=== PATIENT | male | born 1980 | race Caucasian/White ===

== ENCOUNTER 2019-09-17 08:36 | Day surgery (SDC) | payer OTHER ==
--- NOTE | 2019-09-17 08:07 | HP ---
DATE OF SURGERY: 09/17/2019 HISTORY OF PRESENT ILLNESS: The patient is a 39 year-old with upper abdominal and some lower chest area pain over a couple of weeks, having problems in the lower esophagus food getting stuck in that area. He is in need for upper endoscopy possible biopsy possible dilatation for further evaluation to evaluate for esophagitis, gastritis, esophageal stricture, peptic ulcer disease, other etiologies or symptoms. PAST MEDICAL HISTORY: Kidney stones. History of deep venous thrombosis in the past in 2016 and that is why he is on Xarelto. PAST SURGICAL HISTORY: Cystoscopy in the past. MEDICATIONS: Xarelto, omeprazole. ALLERGIES: NKDA. FAMILY HISTORY: Negative in regards to this problem. Negative for esophageal cancer. SOCIAL HISTORY: No smoking. Occasional alcohol use denies abuse. REVIEW OF SYSTEMS: Fourteen systems reviewed per admission assessment. He has had upper abdominal pain radiating up to the chest but no palpitations. No new shortness of breath. Otherwise pertinent for as noted above. Other systems negative or noncontributory as above and per preadmission assessment. PHYSICAL EXAMINATION: GENERAL: No acute distress. HEENT: Sclerae nonicteric. Moist mucous membranes. NECK: No JVD. CHEST: Equal excursion, nonlabored breathing. CVS: Regular rate and rhythm. ABDOMEN: Soft. No peritoneal signs. EXTREMITIES: No significant edema. NEURO: Alert, oriented, moving extremities symmetrically. No gross motor deficits noted. PSYCH: Appropriate mood and affect. IMPRESSION: Epigastric pain and dysphagia unclear etiology could be esophagitis, esophageal stricture, gastritis, peptic ulcer disease or other etiology. I feel the patient may benefit from EGD possible biopsy, possible dilatation depending on operative findings. Risks and benefits explained in detail including but not limited to bleeding or infection, risk of bowel injury or perforation possibly requiring open procedure, risk of missed or nondiagnosis or incomplete exam possibly requiring barium swallow, other studies or procedures. He understands if he does have a narrowed area if we dilate it out this possibly may need to be repeated again down the road or if it looks narrowed and we use balloon to dilate and fails to improve swallowing may need further work up and/or testing, more risky dilators or need for upper GI study or other studies or work up. He also understands if his upper endoscopy is fairly unremarkable may need to consider gallbladder work up but at this time given his epigastric pain and dysphagia will proceed with EGD with possible biopsy possible dilatation as an outpatient. The patient agrees with the above as well as risk of sedation or aspiration but not limited to. Risk of deep venous thrombosis. Will EGD with possible biopsy possible dilatation as an outpatient.
[2019-09-17] MEDS ORDERED: Lactated Ringers 1,000 ML IV SCH (09:00)
[2019-09-17] MEDS ORDERED: Lactated Ringers 1,000 ML IV ONE (09:20)
[2019-09-17] MEDS ORDERED: Xylocaine-Mpf 2% 5 Ml Vial ONE (10:25)
[2019-09-17] MEDS ORDERED: Ketamine HCl 50 MG/ML ONE (10:25)
[2019-09-17] MEDS ORDERED: DIPRIVAN 200 MG/20 ML IV ONE (10:25)
[2019-09-17 12:40] VITALS: BP 120/59; PULSE 60; O2SAT 98
--- NOTE | 2019-09-18 09:44 | OP ---
SURGERY DATE/TIME: 09/17/2019 1019 PREOPERATIVE DIAGNOSIS: Dysphagia. POSTOPERATIVE DIAGNOSES: 1) Minimal gastritis. 2) Short segment distal gastroesophagitis with symptomatic distal esophageal narrowing and spasm requiring dilatation. PROCEDURES: 1) EGD with cold biopsy of the antrum for Helicobacter pylori. 2) Cold biopsy distal esophagus to evaluate for short segment distal gastroesophagitis. 3) Esophageal dilatation distal esophagus balloon dilator size 20. SURGEON: Dr. Leonard Pope. ANESTHESIA: MAC. ESTIMATED BLOOD LOSS: Minimal. INDICATIONS: As noted above. Risks and benefits explained in detail and not limited to and consent obtained. DESCRIPTION OF PROCEDURE AND FINDINGS: The patient is taken to the operating room. MAC anesthesia introduced. After official time out and no disagreement with planned procedure, the video gastroscope was easily passed down the oropharynx down through the proximal esophagus through the narrowed area where he was having symptoms in the distal esophagus down to the patent pylorus to the junction of the second and third portion of the duodenum. The duodenum and duodenal bulb were grossly unremarkable. Scope pulled back in the stomach. He had some minimal to mild erythema. It was felt he had some minimal early gastritis or mild gastritis. Cold biopsy taken to evaluate for Helicobacter pylori. Good hemostasis noted. There were no signs of any obvious polyps, masses, ulcers or other mucosal lesions. On retroflex the gastroesophageal junction snug against the scope. No signs of any significant hiatal hernia on retroflex of the scope. The scope was pulled up in gastroesophageal junction about 40 cm. There was narrowed area where he was having symptoms of things getting stuck. It was felt this warranted dilatation of this distal esophageal narrowing spasm. In short segment of a little bit of mild chronic inflammation a cold biopsy taken to evaluate for path. Good hemostasis noted. Otherwise the remainder of the esophagus grossly unremarkable. No signs of any obvious other masses or any mucosal lesions. It was felt the patient would benefit from dilatation. The scope passed down in the stomach. The 20 balloon dilator catheter carefully inserted under direct vision in the stomach. It was then pulled back up to the distal esophageal narrowed area where it was gradually inflated first stage 45 seconds size 18, size 19 for 45 seconds, size 20 balloon inflated and left in place for 2 minutes. Balloon catheter was then decompressed and withdrawn. The scope much more easily passed through this area. There were no signs of any full thickness issues or injury secondary to dilatation. The remainder of the esophagus grossly unremarkable. The scope was withdrawn. The patient tolerated the procedure well. There were no immediate complications. There was no family available to discuss the findings with out in the waiting area.
== END 2019-09-17 11:50 | disposition home or self-care (01) ==
LOC: SDC 08:36
PROVIDERS: ATTEND Surgery
DX: K29.70 Gastritis, unspecified, without bleeding (principal); K22.2 Esophageal obstruction; K20.9 Esophagitis, unspecified; K22.4 Dyskinesia of esophagus
CPT/HCPCS: 87081; 88305; C1726; J2704

== ENCOUNTER 2019-11-24 07:51 | Emergency (ER) | payer OTHER ==
--- NOTE | 2019-11-24 08:10 | ERPHSYRPT ---
- History of Present Illness Time Seen by Provider: 11/24/19 08:10 Source: patient Exam Limitations: no limitations Patient Subjective Stated Complaint: back pain Triage Nursing Assessment: pt to ED c/o lower back pain since . pt denies injury or trauma to area. pt states 10/10 pain center above tailbone that radiates to upper thighs bilaterally. reports occasional hx of upper back and neck pain but has never had issues in lower back. 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 some constipation onset with pain. ambulatory with steady gate per self. Physician History: pt to ED c/o lower back pain since . pt denies injury or trauma to area. pt states 10/10 pain center above tailbone that radiates to upper thighs bilaterally. reports occasional hx of upper back and neck pain but has never had issues in lower back. 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 some constipation onset with pain. ambulatory with steady gate per self. Timing/Duration: yesterday Allergies/Adverse Reactions: No Known Drug Allergies Allergy (Verified 11/24/19 08:05) Home Medications: Omeprazole 20 mg PO DAILY 09/11/19 [History] Hx Tetanus, Diphtheria Vaccination/Date Given: Yes Hx Influenza Vaccination/Date Given: Yes Hx Pneumococcal Vaccination/Date Given: No Immunizations Up to Date: Yes Travel Risk - International Travel Have you traveled outside of the country in past 3 weeks: No - Coronavirus Screening Are you exhibiting any of the following symptoms?: No Close contact with a COVID-19 positive Pt in past 14-21 Days: No - Review of Systems Constitutional: No Fever, No Chills Eyes: No Symptoms Ears, Nose, & Throat: No Symptoms Respiratory: No Cough, No Dyspnea Cardiac: No Chest Pain, No Edema, No Syncope Abdominal/Gastrointestinal: No Abdominal Pain, No Nausea, No Vomiting, No Diarrhea Genitourinary Symptoms: No Dysuria Musculoskeletal: Back Pain, No Neck Pain Skin: No Rash Neurological: No Dizziness, No Focal Weakness, No Sensory Changes Psychological: No Symptoms Endocrine: No Symptoms All Other Systems: Reviewed and Negative - Past Medical History Pertinent Past Medical History: Yes Neurological History: No Pertinent History ENT History: No Pertinent History Cardiac History: Deep Vein Thrombosis Respiratory History: No Pertinent History Endocrine Medical History: No Pertinent History Musculoskeletal History: No Pertinent History GI Medical History: No Pertinent History History: Other Psycho-Social History: No Pertinent History Male Reproductive Disorders: No Pertinent History Other Medical History: possible kidney stones, DVT 2016 - Past Surgical History Past Surgical History: No Neuro Surgical History: No Pertinent History Cardiac: No Pertinent History Respiratory: No Pertinent History Gastrointestinal: No Pertinent History Genitourinary: No Pertinent History Musculoskeletal: No Pertinent History Male Surgical History: No Pertinent History Other Surgical History: uroscopy - Social History Smoking Status: Never smoker Exposure to second hand smoke: No Drug Use: none Patient Lives Alone: No - Nursing Vital Signs Nursing Vital Signs: Initial Vital Signs Temperature 97.8 F 11/24/19 07:56 Pulse Rate 75 11/24/19 07:56 Respiratory Rate 18 11/24/19 07:56 Blood Pressure 125/90 11/24/19 07:56 O2 Sat by Pulse Oximetry 99 11/24/19 07:56 Pain Scale Pain Intensity [Posterior 10 Medial Back] Pain Intensity 10 - Physical Exam General Appearance: no apparent distress, alert Eye Exam: PERRL/EOMI, eyes nml inspection Neck Exam: normal inspection, non-tender, supple, full range of motion, No meningismus, No midline tenderness Respiratory Exam: normal breath sounds, lungs clear, No respiratory distress Cardiovascular Exam: regular rate/rhythm, normal heart sounds Gastrointestinal Exam: soft, No tenderness, No mass Extremity Exam: normal inspection, normal range of motion, No calf tenderness, No pedal edema Neurologic Exam: alert, oriented x 3, 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, 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, normal mood/affect, nml station & gait, sensation nml, No motor deficits Skin Exam: normal color, warm, dry, No rash SpO2: 99 - Course Nursing assessment & vital signs reviewed: Yes Ordered Tests: Medication Summary Discontinued Medications Generic Name Dose Route Start Last Admin Trade Name Freq PRN Reason Stop Dose Admin Ketorolac Tromethamine 60 mg 11/24/19 08:15 11/24/19 08:22 Toradol 30 Mg Injection IM 11/24/19 08:16 60 mg STAT ONE Administration Ketorolac Tromethamine Confirm 11/24/19 08:18 Toradol 30 Mg Injection Administered 11/24/19 08:19 Dose 60 mg .ROUTE .STK-MED ONE Orphenadrine Citrate 60 mg 11/24/19 08:15 11/24/19 08:22 Norflex 60 Mg/2 Ml IM 11/24/19 08:16 60 mg STAT ONE Administration Orphenadrine Citrate Confirm 11/24/19 08:19 Norflex 60 Mg/2 Ml Administered 11/24/19 08:20 Dose 60 mg .ROUTE .STK-MED ONE - Progress Progress: improved, pain not gone completely Progress Note: 11/24/19 08:25 I reviewed patient previous labs as well as x-rays that included a d-dimer protein S protein C and other coagulation factor assay which are all negative. Patient is still taking Xarelto which I advised her to hold for 2 days while he is taking naproxen for his back pain. He is strongly advised to go and follow- up with Dr. Amin and discuss all his labs and about continuation of Xarelto. My recommendation for him is to stop Xarelto. 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 He is advised some back exercise which he has to continue doing it. Counseled pt/family regarding: lab results, diagnosis, need for follow-up, rad results - Departure Departure Disposition: Home Clinical Impression: Lumbalgia Qualifiers: Chronicity: acute Back pain laterality: bilateral Sciatica laterality: sciatica laterality unspecified Condition: Stable Critical Care Time: No Referrals: JIM AMIN MD [Primary Care Provider] - Instructions: Low Back Pain (DC), Back Stretches Standing or Seated, Sciatica Exercises Additional Instructions: Discharge/Care Plan FALGUNI CROWELL was seen on 11/24/19 in the Emergency Room. The patient was counseled regarding Diagnosis,Lab results, Imaging studies, need for follow up and when to return to the Emergency Room. Prescriptions given: Discharge Note I have spoken with the patient and/or caregivers. I have explained the patient's condition, diagnosis and treatment plan based on the information available to me at this time. I have answered the patient's and/or caregiver's questions and addressed any concerns. The patient and/or caregivers have as good understanding of the patient's diagnosis, condition and treatment plan as can be expected at this point. The vital signs have been stable. The patient's condition is stable and appropriate for discharge from the emergency department. The patient will pursue further outpatient evaluation with the primary care physician or other designated or consulting physician as outlined in the discharge instructions. The patient and/or caregivers are agreeable to this plan of care and follow-up instructions have been explained in detail. The patient and/or caregivers have received these instruction. The patient/and or caregivers are aware that any significant change in condition or worsening of symptoms should prompt an immediate return to this or the closest emergency department or call 911. I advised patient strongly to follow-up with Dr. Amin for further reviewing his laboratory data and regarding continuation of his Xarelto. Prescriptions: Naproxen 375 mg [Naprosyn 375 mg] 375 mg PO Q8H #20 tablet
[2019-11-24] MEDS ORDERED: TORAdol 30 mg Injection IM ONE (08:15)
[2019-11-24] MEDS ORDERED: Norflex 60 MG/2 ML IM ONE (08:15)
[2019-11-24] MEDS ORDERED: TORAdol 30 mg Injection ONE (08:18)
[2019-11-24] MEDS ORDERED: Norflex 60 MG/2 ML ONE (08:19)
[2019-11-24 08:53] VITALS: BP 132/87; PULSE 70
[2019-11-24 08:55] VITALS: O2SAT 99
== END 2019-11-24 08:51 | disposition home or self-care (01) ==
LOC: ED 07:51
DX: M54.40 Lumbago with sciatica, unspecified side (principal); Z79.01 Long term (current) use of anticoagulants
CPT/HCPCS: 96372; 99284; J1885; J2360

== ENCOUNTER 2020-03-05 16:12 | Emergency (ER) | payer OTHER ==
--- NOTE | 2020-03-05 16:21 | ERPHSYRPT ---
- History of Present Illness Time Seen by Provider: 03/05/20 16:21 Source: patient Exam Limitations: no limitations Physician History: This is a 39-year-old white male who has a history of right lower extremity DVT in the past. He was taking Xarelto until approximately 3 months ago. 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 Approximately 5 days ago he noted some tightness in the right calf that was worsening. He started old Xarelto. After work yesterday he went to see [facility] emergency department where he underwent ultrasound of his right lower extremity. This morning he found the results to be positive for DVT. He was given 20 mg of Xarelto today and then a prescription for 30 more days. Patient denies chest pain and denies shortness of breath. He came to the emergency department because he felt he may be incompletely treated. I did call Dr. Amin, the patient's primary care provider. I reviewed with Dr. Amin the history above. He recommends no additional anticoagulation therapy. He is also recommending that the patient follow-up in his office tomorrow to make arrangements for follow-up appointment. Patient specifically states he does not need anything for pain control. Timing/Duration: day(s) (5) Severity: mild Modifying Factors: Improves With: movement Associated Symptoms: denies symptoms Allergies/Adverse Reactions: No Known Drug Allergies Allergy (Verified 03/05/20 16:38) Home Medications: Omeprazole 20 mg PO DAILY 09/11/19 [History] Rivaroxaban 10 mg Tablet [Xarelto 10 mg Tablet] 20 mg PO DAILY 03/05/20 [History] Hx Tetanus, Diphtheria Vaccination/Date Given: Yes Hx Influenza Vaccination/Date Given: Yes Hx Pneumococcal Vaccination/Date Given: No Travel Risk - International Travel Have you traveled outside of the country in past 3 weeks: No - Coronavirus Screening Are you exhibiting any of the following symptoms?: No Close contact with a COVID-19 positive Pt in past 14-21 Days: No - Review of Systems Constitutional: No Symptoms Eyes: No Symptoms Ears, Nose, & Throat: No Symptoms Respiratory: No Symptoms Cardiac: No Symptoms Abdominal/Gastrointestinal: No Symptoms Genitourinary Symptoms: No Symptoms Musculoskeletal: Other (Tightness right calf) Skin: No Symptoms Neurological: No Symptoms Psychological: No Symptoms Endocrine: No Symptoms Hematologic/Lymphatic: No Symptoms Immunological/Allergic: No Symptoms All Other Systems: Reviewed and Negative - Past Medical History Pertinent Past Medical History: Yes Neurological History: No Pertinent History ENT History: No Pertinent History Cardiac History: Deep Vein Thrombosis Respiratory History: No Pertinent History Endocrine Medical History: No Pertinent History Musculoskeletal History: No Pertinent History GI Medical History: No Pertinent History History: Other Psycho-Social History: No Pertinent History Male Reproductive Disorders: No Pertinent History Other Medical History: possible kidney stones, DVT 2016 - Past Surgical History Past Surgical History: No Neuro Surgical History: No Pertinent History Cardiac: No Pertinent History Respiratory: No Pertinent History Gastrointestinal: No Pertinent History Genitourinary: No Pertinent History Musculoskeletal: No Pertinent History Male Surgical History: No Pertinent History Other Surgical History: uroscopy - Social History Smoking Status: Never smoker Exposure to second hand smoke: No Drug Use: none Patient Lives Alone: No - Nursing Vital Signs Nursing Vital Signs: Initial Vital Signs Pulse Rate 78 03/05/20 16:32 Respiratory Rate 18 03/05/20 16:32 Blood Pressure 148/93 03/05/20 16:32 O2 Sat by Pulse Oximetry 97 03/05/20 16:32 Pain Scale Pain Intensity 4 - Physical Exam General Appearance: no apparent distress, alert, anxiety Eye Exam: PERRL/EOMI, eyes nml inspection Ears, Nose, Throat Exam: normal ENT inspection, moist mucous membranes Neck Exam: normal inspection, non-tender, supple, full range of motion Respiratory Exam: lungs clear, airway intact, No chest tenderness, No respirato ry distress Cardiovascular Exam: regular rate/rhythm, normal heart sounds, normal peripheral pulses Gastrointestinal/Abdomen Exam: soft, normal bowel sounds, No tenderness Rectal Exam: not done Back Exam: normal inspection, normal range of motion, No CVA tenderness, No vertebral tenderness Extremity Exam: normal range of motion, pelvis stable, swelling (Mild right posterior calf swelling compared to the left side), tenderness (Mild right calf) Neurologic Exam: alert, oriented x 3, 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 Dr. Amin does not feel the patient needs any further anticoagulation therapy and can be sent home with his current treatment plan. He is to follow-up with Dr. Amin's office tomorrow to make arranges for follow- up appointment. The patient declines pain control medication. He will use Tylenol at home if needed. Patient is to continue to the Xarelto medication as prescribed. Counseled pt/family regarding: diagnosis, need for follow-up - Departure Departure Disposition: Home Clinical Impression: DVT (deep venous thrombosis) Condition: Stable Critical Care Time: No Referrals: JIM AMIN MD [Primary Care Provider] - Additional Instructions: Continue your medication as prescribed. Follow-up with Dr. Amin's office tomorrow to make arrangements for follow-up appointment.
[2020-03-05 17:16] VITALS: O2SAT 98
[2020-03-05 18:02] VITALS: BP 132/82; PULSE 72
== END 2020-03-05 18:06 | disposition home or self-care (01) ==
LOC: ED 16:12
DX: I82.401 Acute embolism and thrombosis of unspecified deep veins of right lower extremity (principal); Z79.01 Long term (current) use of anticoagulants
CPT/HCPCS: 99283

== ENCOUNTER 2020-03-08 19:25 | Emergency (ER) | payer OTHER ==
[2020-03-08] MEDS ORDERED: Sodium Chloride 0.9% 1000 ML 1,000 ML IV STA (19:33)
[2020-03-08] MEDS ORDERED: MORPHINE SULFATE 4 MG INJ IV ONE (19:33)
[2020-03-08] MEDS ORDERED: Pepcid 20 MG VIAL IV ONE ×2 (19:33→19:57)
[2020-03-08 19:57] LABS: Absolute Neutrophil Ct (ANC) 3.25 (1.4-6.9); BASOPHIL % 0.4 % (0.0-0.4); Basophil (Absolute #) 0.03 (0-0.4); Eosinophil % 4.9 % (0.00-5.0); Eosinophil (Absolute #) 0.37 (0-0.5); Hematocrit 44.1 % (42-50); Hemoglobin 15.4 gm/dl (12.5-18.0); Lymphocyte (Absolute #) 3.37 (1.0-4.6); Lymphocytes % 44.3 % (24.0-44.0); Mean Cell Volume 92.1 fl (78-100); Mean Corpuscular Hemoglobin 32.2 pg (26-32); Mean Corpuscular Hgb Concent. 34.9 g/dl (32-36); Mean Platelet Volume 10.1 fl (7.5-11.0); Monocyte (Absolute #) 0.58 (0.0-1.3); Monocytes % 7.6 % (0.0-12.0); Neutrophil % 42.8 % (36.0-66.0); Platelet Count 218 K/mm3 (150-450); Red Blood Count 4.79 M/mm3 (4.1-5.6); Red Cell Distribution Width 12.6 % (11.5-14.0); White Blood Count 7.6 K/mm3 (4.0-10.5)
[2020-03-08] MEDS ORDERED: MORPHINE SULFATE 4 MG INJ ONE (19:57)
[2020-03-08] MEDS ORDERED: Sodium Chloride 0.9% 1000 ML 1,000 ML ONE (19:57)
[2020-03-08 20:03] LABS: ALBUMIN 4.8 g/dL (3.5-5.0); ALKALINE PHOSPHATASE 60 U/L (38-126); ANION GAP 13.4 MEQ/L (5-15); BLOOD UREA NITROGEN 25 mg/dL (9-20); CHLORIDE 102 mmol/L (98-107); Calcium 10.3 mg/dL (8.4-10.2); Carbon Dioxide 26 mmol/L (22-30); Creatinine 1 1.16 mg/dL (0.66-1.25); EST GLOMERULAR FILTRATION RATE > 60.0 ML/MIN; Glucose 147 mg/dL (74-106); Potassium 4.1 mmol/L (3.5-5.1); SGOT/AST 35 U/L (17-59); SGPT/ALT 46 U/L (0-50); SODIUM 138 mmol/L (137-145); Total Protein 8.4 g/dL (6.3-8.2)
--- NOTE | 2020-03-08 20:03 | ERPHSYRPT ---
- History of Present Illness Time Seen by Provider: 03/08/20 19:59 Historian: patient Exam Limitations: no limitations Patient Subjective Stated Complaint: Patient states " I was diagnosed with blood clot in right lower leg behind right knee on Tuesday and I just started feeling really bad. I'm unsure about what time, I just started feeling clammy and having pressure in my chest and having shortness of breath and told my I needed to go to hospital". Triage Nursing Assessment: Patient arrived into ER being pushed in W/C. Patient A/O times 4. Patient able to stand and pivot into bed independently with stand by assist. Patient able to answer questions without difficulty. Lungs clear bilateral A/P throughout. Patient states he is having SOB. 02 sat 99% on room air upon arrival to ER. Patient breathing without difficulty with no S/S of respiratory distress. Cap refill < 3 seconds. No dependent edema noted. Patient right lower extremity without edema but does have some redness behind right knee and tenderness upon touch. Apical heart rate regular and strong. + BS times 4 quads. ABD soft round non-distended. Patient denies pain or discomfort upon palpitation. Patient denies N/V. Patient denies H/A. Patient denies dizziness. Patient denies any pain in back or radiating pain into left arm or jaw. + radial pulses bilateral. Physician History: Patient states " I was diagnosed with blood clot in right lower leg behind right knee on Tuesday and I just started feeling really bad. I'm unsure about what time, I just started feeling clammy and having pressure in my chest and having shortness of breath and told my I needed to go to hospital". Recently diagnosed with deep vein thrombosis behind his right knee in popliteal artery. He was started on Xarelto 3 days ago. He was also started on Pepcid for acid reflux. He started having epigastric chest pain and he feels heaviness on his left side of the chest. He denies any shortness of breath fever chills nausea vomiting or diarrhea. Timing/Duration: today Quality: fullness Location: substernal Chest Pain Radiation: no radiation Severity of Pain-Max: moderate Severity of Pain-Current: moderate Modifying Factors: Improves With: nothing Associated Symptoms: heartburn, shortness of breath, hurts to breathe, No diaphoresis, No chills, No fever, No fatigue Prior Chest Pain/Cardiac Workup: no prior chest pain Nitro Today/Relief: no nitro taken today Aspirin Treatment Today: no aspirin today Allergies/Adverse Reactions: No Known Drug Allergies Allergy (Verified 03/08/20 19:32) Home Medications: Omeprazole 20 mg PO DAILY 09/11/19 [History] Rivaroxaban 10 mg Tablet [Xarelto 10 mg Tablet] 30 mg PO DAILY 03/05/20 [History] Hx Tetanus, Diphtheria Vaccination/Date Given: No Hx Influenza Vaccination/Date Given: No Hx Pneumococcal Vaccination/Date Given: No Immunizations Up to Date: Yes Travel Risk - International Travel Have you traveled outside of the country in past 3 weeks: No - Coronavirus Screening Symptoms: Shortness of Breath Close contact with a COVID-19 positive Pt in past 14-21 Days: No - Review of Systems Constitutional: No Fever, No Chills Eyes: No Symptoms Ears, Nose, & Throat: No Symptoms Respiratory: No Cough, No Dyspnea Cardiac: Chest Pain, No Edema, No Palpitations, No Syncope Abdominal/Gastrointestinal: No Abdominal Pain, No Nausea, No Vomiting, No Diarrhea Genitourinary Symptoms: No Dysuria Musculoskeletal: No Back Pain, No Neck Pain Skin: No Rash Neurological: No Dizziness, No Focal Weakness, No Sensory Changes Psychological: No Symptoms Endocrine: No Symptoms All Other Systems: Reviewed and Negative - Past Medical History Pertinent Past Medical History: Yes Neurological History: No Pertinent History ENT History: No Pertinent History Cardiac History: Deep Vein Thrombosis Respiratory History: No Pertinent History Endocrine Medical History: No Pertinent History Musculoskeletal History: No Pertinent History GI Medical History: No Pertinent History History: Other Psycho-Social History: No Pertinent History Male Reproductive Disorders: No Pertinent History Other Medical History: possible kidney stones, DVT 2016. Blood Clot 03/04/20 - Past Surgical History Past Surgical History: No Neuro Surgical History: No Pertinent History Cardiac: No Pertinent History Respiratory: No Pertinent History Gastrointestinal: No Pertinent History Genitourinary: No Pertinent History Musculoskeletal: No Pertinent History Male Surgical History: No Pertinent History Other Surgical History: uroscopy - Social History Smoking Status: Never smoker Exposure to second hand smoke: Yes Drug Use: none Patient Lives Alone: No - Nursing Vital Signs Nursing Vital Signs: Initial Vital Signs Temperature 98.1 F 03/08/20 19:29 Pulse Rate 97 H 03/08/20 19:29 Respiratory Rate 22 03/08/20 19:29 Blood Pressure 147/100 03/08/20 19:29 O2 Sat by Pulse Oximetry 99 03/08/20 19:29 Pain Scale Pain Intensity 3 - Physical Exam General Appearance: no apparent distress, alert Eye Exam: PERRL/EOMI, eyes nml inspection Ears, Nose, Throat Exam: normal ENT inspection, moist mucous membranes Neck Exam: normal inspection, non-tender, supple, full range of motion Respiratory Exam: normal breath sounds, lungs clear, No respiratory distress Cardiovascular Exam: regular rate/rhythm, normal heart sounds Gastrointestinal/Abdomen Exam: soft, No tenderness, No mass Back Exam: normal inspection, No CVA tenderness, No vertebral tenderness Extremity Exam: normal inspection, normal range of motion Neurologic Exam: alert, oriented x 3, cooperative, normal mood/affect, sensation nml, No motor deficits Skin Exam: normal color, warm, dry SpO2: 99 - Course Nursing assessment & vital signs reviewed: Yes EKG Interpreted by Me: Sinus Rhythm - Radiology Exams Chest X-ray Interpretation: Reviewed by me, Negative - CT Exams Chest CT Interpretation: Tele-radiologist Report, No PE Ordered Tests: Active Orders 24 hr Category Date Time Status Oxygen-ED Only Nasal Cannula 2 lpm Care 03/08/20 19:33 Active CHEST 2 VIEWS (PA AND LAT) Stat Exams 03/08/20 19:35 Taken CHEST WITH CONTRAST [CT] Stat Exams 03/08/20 19:35 Taken CBC W DIFF Stat Lab 03/08/20 19:30 Completed CMP Stat Lab 03/08/20 19:30 Completed TROPONIN Q3H Lab 03/08/20 19:30 Completed TROPONIN Q3H Lab 03/08/20 22:45 Ordered TROPONIN Q3H Lab 03/09/20 01:45 Ordered TROPONIN Q3H Lab 03/09/20 04:45 Ordered TROPONIN Q3H Lab 03/09/20 07:45 Ordered Medication Summary Discontinued Medications Generic Name Dose Route Start Last Admin Trade Name Freq PRN Reason Stop Dose Admin Famotidine 20 mg 03/08/20 19:33 03/08/20 20:03 Pepcid 20 Mg Vial IV 03/08/20 19:34 20 mg STAT ONE Administration Famotidine Confirm 03/08/20 19:57 Pepcid 20 Mg Vial Administered 03/08/20 19:58 Dose 20 mg IV .STK-MED ONE Sodium Chloride 1,000 mls @ 999 mls/hr 03/08/20 19:33 03/08/20 20:03 Sodium Chloride 0.9% 1000 Ml IV 03/08/20 20:33 999 mls/hr .Q1H1M STA Administration Sodium Chloride Confirm 03/08/20 19:57 Sodium Chloride 0.9% 1000 Ml Administered 03/08/20 19:58 Dose 1,000 mls @ ud .ROUTE .STK-MED ONE Morphine Sulfate 4 mg 03/08/20 19:33 03/08/20 20:01 Morphine Sulfate 4 Mg Inj IV 03/08/20 19:34 4 mg STAT ONE Administration Morphine Sulfate Confirm 03/08/20 19:57 Morphine Sulfate 4 Mg Inj Administered 03/08/20 19:58 Dose 4 mg .ROUTE .STK-MED ONE Lab/Rad Data: Laboratory Result Diagrams 03/08/20 19:30 03/08/20 19:30 Laboratory Results 03/08/20 03/08/20 03/08/20 Range/Units 19:30 19:30 19:30 WBC 7.6 (4.0-10.5) K/mm3 RBC 4.79 (4.1-5.6) M/mm3 Hgb 15.4 (12.5-18.0) gm/dl Hct 44.1 (42-50) % MCV 92.1 (78-100) fl MCH 32.2 H (26-32) pg MCHC 34.9 (32-36) g/dl RDW 12.6 (11.5-14.0) % Plt Count 218 (150-450) K/mm3 MPV 10.1 (7.5-11.0) fl Gran % 42.8 (36.0-66.0) % Eos # (Auto) 0.37 (0-0.5) Absolute Lymphs (auto) 3.37 (1.0-4.6) Absolute Monos (auto) 0.58 (0.0-1.3) Lymphocytes % 44.3 H (24.0-44.0) % Monocytes % 7.6 (0.0-12.0) % Eosinophils % 4.9 (0.00-5.0) % Basophils % 0.4 (0.0-0.4) % Absolute Granulocytes 3.25 (1.4-6.9) Basophils # 0.03 (0-0.4) Sodium 138 (137-145) mmol/L Potassium 4.1 (3.5-5.1) mmol/L Chloride 102 (98-107) mmol/L Carbon Dioxide 26 (22-30) mmol/L Anion Gap 13.4 (5-15) MEQ/L BUN 25 H (9-20) mg/dL Creatinine 1.16 (0.66-1.25) mg/dL Estimated GFR > 60.0 ML/MIN Glucose 147 H (74-106) mg/dL Calcium 10.3 H (8.4-10.2) mg/dL Total Bilirubin 0.60 (0.2-1.3) mg/dL AST 35 (17-59) U/L ALT 46 (0-50) U/L Alkaline Phosphatase 60 (38-126) U/L Troponin I < 0.012 (0.000-0.034) ng/mL Serum Total Protein 8.4 H (6.3-8.2) g/dL Albumin 4.8 (3.5-5.0) g/dL - Progress Progress: improved Air Movement: good Blood Culture(s) Obtained: No Antibiotics given: No Counseled pt/family regarding: lab results, diagnosis, need for follow-up, rad results - Departure Departure Disposition: Home Clinical Impression: Chest pain due to gastrointestinal reflux disease DVT (deep venous thrombosis) Qualifiers: DVT location: lower extremity Affected thrombotic vein of extremity: popliteal Chronicity: unspecified Laterality: right Qualified Code(s): I82.431 - Acute embolism and thrombosis of right popliteal vein Condition: Stable Critical Care Time: Yes Critical Care Time(excluding separately billable procedures): Critical 30-74 mins Referrals: JIM AMIN MD [Primary Care Provider] - Instructions: Chest Pain (DC) Additional Instructions: Discharge/Care Plan MERVATFALGUNI WEBBER was seen on 03/08/20 in the Emergency Room. The patient was counseled regarding Diagnosis,Lab results, Imaging studies, need for follow up and when to return to the Emergency Room. Prescriptions given: Discharge Note I have spoken with the patient and/or caregivers. I have explained the patient's condition, diagnosis and treatment plan based on the information available to me at this time. I have answered the patient's and/or caregiver's questions and addressed any concerns. The patient and/or caregivers have as good understanding of the patient's diagnosis, condition and treatment plan as can be expected at this point. The vital signs have been stable. The patient's condition is stable and appropriate for discharge from the emergency department. The patient will pursue further outpatient evaluation with the primary care physician or other designated or consulting physician as outlined in the discharge instructions. The patient and/or caregivers are agreeable to this plan of care and follow-up instructions have been explained in detail. The patient and/or caregivers have received these instruction. The patient/and or caregivers are aware that any significant change in condition or worsening of symptoms should prompt an immediate return to this or the closest emergency department or call 911. MERVATFALGUNI LAWANDA was seen on 03/08/20 n the Emergency Room. At that time you were treated for an emergent condition, during your visit Laboratory, Radiology and/or other procedures may have been ordered. It is very important that you follow-up with your Primary Care Physician JIM AMIN within the next 24- 48 hours to review your Emergency Room visit and the final results of testing that was ordered. Some test results such as Urine Cultures, Blood Cultures, and other cultures if ordered will not be finalized for 24-48 hours. If you do not have a Primary Care Provider please call the medical records department at [phone] ext [phone] to obtain a copy of your results or you may sign into our patient portal to obtain these results by visiting us @ [email or web address] and completing the following steps: 1. Click on the Patient Portal link 2. Click the Patient Self Enrollment Link to complete the enrollment form and entering your 3. Once the enrollment form is completed you will receive an email with a temporary ID and password at the email address you provided. 4. Next choose a user name and password. Your user name must be at least 4 characters long and your password must be at least 4 characters long. 5. Choose a security question from the list and provide your answer to the question. If you already have signed into the Health Portal you may access your Health Care Information 08/11 by the following steps: 1. Login to our website @ [email or web address] 2. Enter your original user name and password. FAQS The [facility] Health Portal is an online tool that contains your Lab Results, Radiology Reports, Visit History, Discharge Instructions and Health Summary Lab and Radiology Results will not be available for 72 hours on the portal. The Portal is a secure site, passwords are encryted and URLs are re-written so they cannot be copied and pasted. You and authorized family members are the only ones who can access your Portal. Also there is a timeout feature that protects your information if you leave the Portal page open. If you have technical difficulty please use the Contact Us link on the page this will allow you to submit any questions you have regarding the Portal or you may contact the Medical Record Department at [phone] ext [phone].
[2020-03-08 20:32] VITALS: BP 137/93
[2020-03-08 21:14] VITALS: PULSE 84; O2SAT 96
--- NOTE | 2020-03-09 07:56 | XRAY ---
Indication: Chest pain. Right leg DVT. Multiple contiguous axial images obtained through the chest using 100 cc Isovue 370 contrast and PE protocol. Comparison: None. There is satisfactory opacification of the pulmonary arteries to include the lobar and segmental branches. No pulmonary embolus. Heart is not enlarged. Aorta is normal in course and caliber. No pathologic mediastinal/hilar lymphadenopathy. Lungs demonstrates minimal bibasilar subsegmental atelectasis/scarring. 7 mm subpleural left lower lobe noncalcified nodule possibly granulomatous. No infiltrate, consolidation, or effusion. Bony thorax intact. Limited upper abdomen demonstrates moderately food/fluid distended stomach. Impression: 1. Negative pulmonary embolus. No acute cardiopulmonary abnormalities. 2. Subcentimeter left lower lobe noncalcified nodule, possibly granulomatous in this demographic. Comment: Preliminary interpretation was made by [facility]. No critical discrepancy.
--- NOTE | 2020-03-09 07:59 | XRAY ---
Indication: Chest pain. Recent DVT. Comparison: February 02, 2016. PA/lateral chest again demonstrates normal heart, lungs, and bony thorax with incidental tiny left base granuloma.
== END 2020-03-08 21:14 | disposition home or self-care (01) ==
LOC: ED 19:25
DX: I82.431 Acute embolism and thrombosis of right popliteal vein (principal); R07.89 Other chest pain; K21.9 Gastro-esophageal reflux disease without esophagitis; R06.02 Shortness of breath; Z79.01 Long term (current) use of anticoagulants; Z79.899 Other long term (current) drug therapy
CPT/HCPCS: 36000; 36415; 71046; 71260; 80053; 84484; 85025; 96360; 96374; 96375; 99284; 99291; J2270

== ENCOUNTER 2020-11-26 15:03 | Day surgery (SDC) | payer OTHER ==
[2020-11-26] MEDS ORDERED: LIDOCAINE HCL 2% 100 MG/5 ML IJ ONE (15:04)
[2020-11-26] MEDS ORDERED: Decadron 4 MG INJ IV ONE (15:04)
[2020-11-26] MEDS ORDERED: Lactated Ringers 1,000 ML IV ONE (16:38)
[2020-11-26] MEDS ORDERED: DIPRIVAN 200 MG/20 ML IV ONE ×2 (17:42→17:47)
--- NOTE | 2020-11-26 21:14 | XRAY ---
Indication: Right C2-C5 MBB. Intraoperative fluoroscopy provided for 44 seconds. 2 digital spot images submitted for interpretation demonstrates posterior needle tips projecting over the right C2-C5 nerve roots. Correlate with intraoperative findings/report.
--- NOTE | 2020-11-27 08:39 | XRAY ---
44 seconds fluoroscopy time in surgery for right C2-C5 MBB.
== END 2020-11-26 18:15 | disposition home or self-care (01) ==
LOC: SDC-PAIN 15:03
PROVIDERS: ATTEND Psychiatry & Neurology Pain Medicine
DX: M47.812 Spondylosis without myelopathy or radiculopathy, cervical region (principal); Z79.899 Other long term (current) drug therapy
CPT/HCPCS: 64490; 64491; 64492; 72040; 77002; J1100; J2704

== ENCOUNTER 2020-11-27 01:26 | Emergency (ER) | payer OTHER ==
[2020-11-27] MEDS ORDERED: Hydromorphone 1 mg/ml Injection IM ONE (01:38)
--- NOTE | 2020-11-27 01:44 | ERPHSYRPT ---
- History of Present Illness Time Seen by Provider: 11/27/20 01:42 Source: patient, family Exam Limitations: no limitations Physician History: Patient is a 40-year-old white male who presents with a complaint of severe headache and neck pain. He has a long history of chronic pain in his neck and back the etiology of which has remained a mystery through the years. He was seen by Dr. Brock Tuesday and given a nerve block on the right side of the neck. He went to bed with very little pain awoke with the onset of the headache took some ibuprofen and then went back to sleep and awoke at 1 AM with sweats and severe pain. Timing/Duration: yesterday Quality: sharpness, throbbing Head Pain Location: global Severity of Pain-Max: severe Severity of Pain-Current: severe Recent Head Trauma: frequent headaches Associated Symptoms: neck pain, stiff neck Previous symptoms: same symptoms as today Allergies/Adverse Reactions: No Known Drug Allergies Allergy (Verified 11/27/20 01:47) Home Medications: Omeprazole 20 mg PO DAILY 09/11/19 [History] Rivaroxaban 10 mg Tablet [Xarelto 10 mg Tablet] 20 mg PO DAILY 03/05/20 [History] Cyclobenzaprine HCl 10 mg [Cyclobenzaprine 10 MG] 10 mg PO TIDPRN PRN 11/27/20 [History] Hx Tetanus, Diphtheria Vaccination/Date Given: No Hx Influenza Vaccination/Date Given: No Hx Pneumococcal Vaccination/Date Given: No - Review of Systems Constitutional: No Fever, No Chills Eyes: No Symptoms Ears, Nose, & Throat: No Symptoms Respiratory: No Cough, No Dyspnea Cardiac: No Chest Pain, No Edema, No Syncope Abdominal/Gastrointestinal: No Abdominal Pain, No Nausea, No Vomiting, No Diarrhea Genitourinary Symptoms: No Dysuria Musculoskeletal: Back Pain, Neck Pain Skin: No Rash Neurological: Headache, No Dizziness, No Focal Weakness, No Sensory Changes Psychological: No Symptoms Endocrine: No Symptoms All Other Systems: Reviewed and Negative - Past Medical History Pertinent Past Medical History: Yes Neurological History: No Pertinent History ENT History: No Pertinent History Cardiac History: Deep Vein Thrombosis Respiratory History: No Pertinent History Endocrine Medical History: No Pertinent History Musculoskeletal History: No Pertinent History GI Medical History: No Pertinent History History: Other Psycho-Social History: No Pertinent History Male Reproductive Disorders: No Pertinent History Other Medical History: possible kidney stones, DVT 2016. Blood Clot 03/04/20 - Past Surgical History Past Surgical History: No Neuro Surgical History: No Pertinent History Cardiac: No Pertinent History Respiratory: No Pertinent History Gastrointestinal: No Pertinent History Genitourinary: No Pertinent History Musculoskeletal: No Pertinent History Male Surgical History: No Pertinent History Other Surgical History: uroscopy - Social History Smoking Status: Never smoker Exposure to second hand smoke: Yes Drug Use: none Patient Lives Alone: No - Nursing Vital Signs Nursing Vital Signs: Initial Vital Signs Temperature 98.2 F 11/27/20 01:32 Pulse Rate 95 H 11/27/20 01:32 Respiratory Rate 16 11/27/20 01:32 Blood Pressure 165/102 11/27/20 01:32 O2 Sat by Pulse Oximetry 97 11/27/20 01:32 Pain Scale Pain Intensity 10 - Physical Exam General Appearance: moderate distress Eye Exam: PERRL/EOMI Ears, Nose, Throat Exam: normal ENT inspection, moist mucous membranes Neck Exam: normal inspection, supple, full range of motion, No meningismus Respiratory Exam: normal breath sounds, lungs clear Cardiovascular Exam: regular rate/rhythm, normal heart sounds Gastrointestinal/Abdominal Exam: soft, No tenderness, No distention Back Exam: normal inspection, normal range of motion Mental Status Exam: alert, oriented x 3, cooperative food sanitarian Exam: normal speech, PERRL, No facial droop Coordination/Gait Exam: normal cerebellar function Motor/Sensory Exam: no motor deficit, no sensory deficit Skin Exam: normal color, warm, dry, No rash - CT Exams Other CT Interpretation: Tele-radiologist Report Head CT Interpretation: Tele-radiologist Report Ordered Tests: Active Orders 24 hr Category Date Time Status CERVICAL SPINE WO CONTRAST [CT] Stat Exams 11/27/20 01:38 Taken HEAD WITHOUT CONTRAST [CT] Stat Exams 11/27/20 01:41 Taken Medication Summary Discontinued Medications Generic Name Dose Route Start Last Admin Trade Name Freq PRN Reason Stop Dose Admin Hydromorphone HCl 1 mg 11/27/20 01:38 11/27/20 01:50 Hydromorphone 1 Mg/Ml Injection IM 11/27/20 01:39 1 mg STAT ONE Administration Hydromorphone HCl Confirm 11/27/20 01:48 Hydromorphone 1 Mg/Ml Injection Administered 11/27/20 01:49 Dose 1 mg .ROUTE .STK-MED ONE - Progress Progress: improved Air Movement: good Blood Culture(s) Obtained: No Antibiotics given: No - Departure Departure Disposition: Home Clinical Impression: Headache, Neck pain Condition: Stable Critical Care Time: No Referrals: JIM AMIN MD [Primary Care Provider] - Instructions: Headache, Adult (DC)
[2020-11-27] MEDS ORDERED: Hydromorphone 1 mg/ml Injection ONE ×2 (01:48→02:58)
[2020-11-27 02:56] VITALS: O2SAT 93
[2020-11-27] MEDS ORDERED: Hydromorphone 1 mg/ml Injection IV ONE (02:57)
[2020-11-27 03:21] VITALS: BP 108/65; PULSE 90
--- NOTE | 2020-11-27 09:00 | XRAY ---
Indication: Pain following pain management injection one day earlier. Multiple contiguous axial images obtained through the head without contrast. Comparison: None Normal appearing brain parenchyma, ventricles, and bony calvarium. Visualized paranasal sinuses and mastoid air cells are clear. Impression: Normal CT head without contrast exam. Comment: Preliminary interpretation made by [facility]. No critical discrepancy.
--- NOTE | 2020-11-27 09:02 | XRAY ---
Indication: Pain following pain management injection one day earlier. Multiple contiguous axial images obtained through the cervical spine. Sagittal and coronal reformatted images obtained. Comparison: None Axial images negative for acute fracture, suspicious bony lesions, or spinal canal stenosis. Sagittal and coronal reformatted images demonstrates normal alignment with vertebral body heights/disc spaces maintained. No acute compression fracture, subluxation, or jumped facet. Normal appearing craniocervical junction. Visualized noncontrasted soft tissues are unremarkable. Impression: Normal CT cervical spine. Comment: Preliminary interpretation made by [facility]. No critical discrepancy.
== END 2020-11-27 03:30 | disposition home or self-care (01) ==
LOC: ED 01:26
DX: R51.9 Headache, unspecified (principal); M54.2 Cervicalgia; Z79.899 Other long term (current) drug therapy
CPT/HCPCS: 70450; 72125; 96372; 96374; 99284; J1170

== ENCOUNTER 2021-01-07 12:01 | Day surgery (SDC) | payer OTHER ==
[2021-01-07] MEDS ORDERED: BUPIVACAINE 0.5% VIAL IJ ONE (12:02)
[2021-01-07] MEDS ORDERED: Decadron 4 MG INJ IV ONE (12:02)
[2021-01-07] MEDS ORDERED: DIPRIVAN 200 MG/20 ML IV ONE ×2 (13:03→13:20)
[2021-01-07] MEDS ORDERED: Lactated Ringers 1,000 ML IV ONE (16:14)
--- NOTE | 2021-01-08 11:20 | XRAY ---
38 seconds fluoroscopy time in surgery for right C2-C5 MBB.
--- NOTE | 2021-01-10 22:52 | XRAY ---
Indication: Right C2-C5 MBB. Intraoperative fluoroscopy was provided for 38 seconds. A single digital spot image submitted for interpretation demonstrates posterior needle tips projected over the C2-C5 nerve roots. I was not given a frontal image. Correlate with intraoperative findings/report.
== END 2021-01-07 13:33 | disposition home or self-care (01) ==
LOC: SDC-PAIN 12:01
PROVIDERS: ATTEND Psychiatry & Neurology Pain Medicine
DX: M47.812 Spondylosis without myelopathy or radiculopathy, cervical region (principal); Z79.899 Other long term (current) drug therapy
CPT/HCPCS: 64491; 64492; 64493; 72040; 77002; J1100; J2704

== ENCOUNTER 2021-02-11 14:19 | Day surgery (SDC) | payer OTHER ==
[2021-02-11] MEDS ORDERED: Depo-Medrol 40 MG/ML IM ONE (14:20)
[2021-02-11] MEDS ORDERED: Xylocaine 1% Vial 30 ML PF IJ ONE (14:20)
[2021-02-11] MEDS ORDERED: BUPIVACAINE 0.5% VIAL IJ ONE (14:20)
[2021-02-11] MEDS ORDERED: DIPRIVAN 200 MG/20 ML IV ONE ×3 (16:28→16:52)
[2021-02-11] MEDS ORDERED: Lactated Ringers 1,000 ML IV ONE (17:31)
--- NOTE | 2021-02-12 07:15 | XRAY ---
Indication: Right C2-C5 RFA. Intraoperative fluoroscopy provided for 43 seconds. 4 digital spot images submitted for interpretation demonstrates posterior needle tips projecting over the expected right C2-C5 nerve roots. Correlate with intraoperative findings/report.
--- NOTE | 2021-02-12 10:20 | XRAY ---
43 seconds fluoroscopy time in surgery for right C2-C5 RFA.
== END 2021-02-11 17:07 | disposition home or self-care (01) ==
LOC: SDC-PAIN 14:19
PROVIDERS: ATTEND Psychiatry & Neurology Pain Medicine
DX: M47.812 Spondylosis without myelopathy or radiculopathy, cervical region (principal); I82.409 Acute embolism and thrombosis of unspecified deep veins of unspecified lower extremity; M19.90 Unspecified osteoarthritis, unspecified site; K21.9 Gastro-esophageal reflux disease without esophagitis; Z79.899 Other long term (current) drug therapy
CPT/HCPCS: 64633; 64634; 72040; 77002; J1030; J2001; J2704

== ENCOUNTER 2021-05-23 20:02 | Emergency (ER) | payer OTHER ==
--- NOTE | 2021-05-23 20:27 | ERPHSYRPT ---
- History of Present Illness Time Seen by Provider: 05/23/21 20:22 Source: patient Exam Limitations: no limitations Physician History: pt has hx of headaches treated by an ablation injection for cervicalgia/occipital headaches in Mar 08. No trauma. No fever. Does take blood thinners. pain exacerbated by movement of left leg agains gravity/force. Abd soft and nontender without peritoneal signs. No N or V. Neuro intact without deficits. Here for back pain for one week, increased past 3 days. No prior significant back or neck pain - denies epidurals or procedures for spine. Pt advised of the possibility of some type of epidural abscess as a cause for the back pain and discussed CT with contrast , and he wishes to proceed Timing/Duration: day(s) Method of Injury: unknown, lifting (last week some lifting made it worse) Quality: sharp Back Pain Location: lumbar spine, paraspinous muscles Back Pain Radiation: buttocks Severity of Pain-Max: moderate Severity of Pain-Current: moderate Modifying Factors: Improves With: movement Associated Symptoms: lower back pain Previous symptoms: no prior history Allergies/Adverse Reactions: No Known Drug Allergies Allergy (Verified 05/23/21 20:22) Home Medications: Omeprazole 20 mg PO DAILY 09/11/19 [History] Rivaroxaban 10 mg Tablet [Xarelto 10 mg Tablet] 20 mg PO DAILY 03/05/20 [History] Hx Tetanus, Diphtheria Vaccination/Date Given: No Hx Influenza Vaccination/Date Given: No Hx Pneumococcal Vaccination/Date Given: No Travel Risk - Vaccine Status Have you recieved a Covid-19 vaccination: Yes 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[employer]: [employer] - Review of Systems Constitutional: No Fever, No Chills Eyes: No Symptoms Ears, Nose, & Throat: No Symptoms Respiratory: No Cough, No Dyspnea Cardiac: No Chest Pain, No Edema, No Syncope Abdominal/Gastrointestinal: No Abdominal Pain, No Nausea, No Vomiting, No Diarrhea Genitourinary Symptoms: No Dysuria Musculoskeletal: Back Pain, No Neck Pain Skin: No Rash Neurological: No Dizziness, No Focal Weakness, No Sensory Changes Psychological: No Symptoms Endocrine: No Symptoms Hematologic/Lymphatic: No Symptoms Immunological/Allergic: No Symptoms All Other Systems: Reviewed and Negative - Past Medical History Pertinent Past Medical History: Yes Neurological History: No Pertinent History ENT History: No Pertinent History Cardiac History: Deep Vein Thrombosis Respiratory History: No Pertinent History Endocrine Medical History: No Pertinent History Musculoskeletal History: No Pertinent History GI Medical History: No Pertinent History History: Other Psycho-Social History: No Pertinent History Male Reproductive Disorders: No Pertinent History Other Medical History: possible kidney stones, DVT 2016. Blood Clot 03/04/20 - Past Surgical History Past Surgical History: No Neuro Surgical History: No Pertinent History Cardiac: No Pertinent History Respiratory: No Pertinent History Gastrointestinal: No Pertinent History Genitourinary: No Pertinent History Musculoskeletal: No Pertinent History Male Surgical History: No Pertinent History Other Surgical History: uroscopy - Social History Smoking Status: Never smoker Exposure to second hand smoke: Yes Drug Use: none Patient Lives Alone: No - Nursing Vital Signs Nursing Vital Signs: Initial Vital Signs Temperature 97.2 F 05/23/21 20:23 Pulse Rate 81 05/23/21 20:23 Respiratory Rate 20 05/23/21 20:23 Blood Pressure 144/89 05/23/21 20:23 O2 Sat by Pulse Oximetry 97 05/23/21 20:23 Pain Scale Pain Intensity [Mid lower back 5 ] Pain Intensity 5 - Physical Exam General Appearance: no apparent distress, alert Eye Exam: PERRL/EOMI, eyes nml inspection Neck Exam: normal inspection, non-tender, supple, full range of motion, No meningismus, No midline tenderness Respiratory Exam: normal breath sounds, lungs clear, No respiratory distress Cardiovascular Exam: regular rate/rhythm, normal heart sounds Gastrointestinal Exam: soft, No tenderness, No mass Rectal Exam: deferred Back Exam: decreased range of motion, muscle spasm, No vertebral tenderness, No point tenderness Extremity Exam: normal inspection, normal range of motion, No calf tenderness, No pedal edema Peripheral Pulses: carotid (R): 2+, carotid (L): 2+, femoral (R): 2+, femoral (L): 2+, dorsalis-pedis (R): 2+, dorsalis-pedis (L): 2+ Neurologic Exam: alert, oriented x 3, cooperative, 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 nml as tested, normal mood/affect, nml station & gait, sensation nml, No motor deficits Skin Exam: normal color, warm, dry, No rash SpO2 Interpretation: normal SpO2: 97 O2 Delivery: Room Air - Course Nursing assessment & vital signs reviewed: Yes Ordered Tests: Active Orders 24 hr Category Date Time Status IV Insertion STAT Care 05/23/21 20:39 Active LUMBAR SPINE WITH [CT] Stat Exams 05/23/21 20:37 Taken CBC W DIFF Stat Lab 05/23/21 20:48 Completed CMP Stat Lab 05/23/21 20:48 Completed Lactic Acid Stat Lab 05/23/21 20:56 Completed UA W/RFX UR CULTURE Stat Lab 05/23/21 20:33 Completed Medication Summary Discontinued Medications Generic Name Dose Route Start Last Admin Trade Name Mena PRN Reason Stop Dose Admin Cyclobenzaprine HCl 10 mg 05/23/21 22:45 05/23/21 22:59 Cyclobenzaprine Hcl 10 Mg Tablet PO 05/23/21 22:46 10 mg STAT ONE Administration Cyclobenzaprine HCl Confirm 05/23/21 22:58 Cyclobenzaprine Hcl 10 Mg Tablet Administered 05/23/21 22:59 Dose 10 mg .ROUTE .STK-MED ONE Hydromorphone HCl 0.5 mg 05/23/21 20:39 05/23/21 20:54 Hydromorphone 1 Mg/1ml Inj 1 Mg/Ml Syringe IV 05/23/21 20:40 0.5 mg STAT ONE Administration Hydromorphone HCl Confirm 05/23/21 20:51 Hydromorphone 1 Mg/1ml Inj 1 Mg/Ml Syringe Administered 05/23/21 20:52 Dose 1 mg .ROUTE .STK-MED ONE Hydromorphone HCl 1 mg 05/23/21 22:44 05/23/21 23:00 Hydromorphone 1 Mg/1ml Inj 1 Mg/Ml Syringe IV 05/23/21 22:45 1 mg STAT ONE Administration Hydromorphone HCl Confirm 05/23/21 22:59 Hydromorphone 1 Mg/1ml Inj 1 Mg/Ml Syringe Administered 05/23/21 23:00 Dose 1 mg .ROUTE .STK-MED ONE Sodium Chloride 1,000 mls @ 999 mls/hr 05/23/21 20:39 05/23/21 21:57 Sodium Chloride 0.9% 1000 Ml IV 05/23/21 21:39 Infused .Q1H1M STA Infusion Sodium Chloride Confirm 05/23/21 20:51 Sodium Chloride 0.9% 1000 Ml Administered 05/23/21 20:52 Dose 1,000 mls @ ud .ROUTE .STK-MED ONE Ondansetron HCl 4 mg 05/23/21 20:40 05/23/21 20:53 Ondansetron Hcl 4 Mg/2 Ml Vial IV 05/23/21 20:41 4 mg STAT ONE Administration Ondansetron HCl Confirm 05/23/21 20:51 Ondansetron Hcl 4 Mg/2 Ml Vial Administered 05/23/21 20:52 Dose 4 mg .ROUTE .STK-MED ONE Orphenadrine Citrate 60 mg 05/23/21 20:29 05/23/21 21:15 Orphenadrine Citrate 60 Mg/2 Ml Amp IM 05/23/21 20:30 Not Given STAT ONE Lab/Rad Data: Laboratory Result Diagrams 05/23/21 20:48 05/23/21 20:48 Laboratory Results 05/23/21 05/23/21 05/23/21 Range/Units 20:56 20:48 20:48 WBC 5.6 (4.0-10.5) K/mm3 RBC 4.33 (4.1-5.6) M/mm3 Hgb 13.9 (12.5-18.0) gm/dl Hct 40.3 L (42-50) % MCV 93.1 (78-100) fl MCH 32.1 H (26-32) pg MCHC 34.5 (32-36) g/dl RDW 12.7 (11.5-14.0) % Plt Count 189 (150-450) K/mm3 MPV 9.8 (7.5-11.0) fl Gran % 40.8 (36.0-66.0) % Eos # (Auto) 0.23 (0-0.5) Absolute Lymphs (auto) 2.43 (1.0-4.6) Absolute Monos (auto) 0.63 (0.0-1.3) Lymphocytes % 43.6 (24.0-44.0) % Monocytes % 11.3 (0.0-12.0) % Eosinophils % 4.1 (0.00-5.0) % Basophils % 0.2 (0.0-0.4) % Absolute Granulocytes 2.27 (1.4-6.9) Basophils # 0.01 (0-0.4) Sodium 138 (137-145) mmol/L Potassium 4.3 (3.5-5.1) mmol/L Chloride 103 (98-107) mmol/L Carbon Dioxide 26 (22-30) mmol/L Anion Gap 13.5 (5-15) MEQ/L BUN 18 (9-20) mg/dL Creatinine 0.93 (0.66-1.25) mg/dL Estimated GFR > 60.0 ML/MIN Glucose 284 H (74-106) mg/dL Lactic Acid 1.2 (0.4-2.0) Calcium 9.2 (8.4-10.2) mg/dL Total Bilirubin 0.50 (0.2-1.3) mg/dL AST 32 (17-59) U/L ALT 62 H (0-50) U/L Alkaline Phosphatase 68 (38-126) U/L Serum Total Protein 6.9 (6.3-8.2) g/dL Albumin 4.2 (3.5-5.0) g/dL Urine Color (YELLOW) Urine Appearance (CLEAR) Urine pH (5-6) Ur Specific [place] (1.005-1.025) Urine Protein (Negative) Urine Ketones (NEGATIVE) Urine Blood (0-5) Que/ul Urine Nitrite (NEGATIVE) Urine Bilirubin (NEGATIVE) Urine Urobilinogen (0-1) mg/dL Ur Leukocyte Esterase (NEGATIVE) Urine WBC (Auto) (0-5) /HPF Urine RBC (Auto) (0-2) /HPF U Hyaline Cast (Auto) (0-2) /LPF U Epithel Cells (Auto) (FEW) /HPF Urine Bacteria (Auto) (NEGATIVE) /HPF Urine Mucus (Auto) (NEGATIVE) /HPF Urine Culture Reflexed (NO) Urine Glucose (NEGATIVE) mg/dL 05/23/21 Range/Units 20:33 WBC (4.0-10.5) K/mm3 RBC (4.1-5.6) M/mm3 Hgb (12.5-18.0) gm/dl Hct (42-50) % MCV (78-100) fl MCH (26-32) pg MCHC (32-36) g/dl RDW (11.5-14.0) % Plt Count (150-450) K/mm3 MPV (7.5-11.0) fl Gran % (36.0-66.0) % Eos # (Auto) (0-0.5) Absolute Lymphs (auto) (1.0-4.6) Absolute Monos (auto) (0.0-1.3) Lymphocytes % (24.0-44.0) % Monocytes % (0.0-12.0) % Eosinophils % (0.00-5.0) % Basophils % (0.0-0.4) % Absolute Granulocytes (1.4-6.9) Basophils # (0-0.4) Sodium (137-145) mmol/L Potassium (3.5-5.1) mmol/L Chloride (98-107) mmol/L Carbon Dioxide (22-30) mmol/L Anion Gap (5-15) MEQ/L BUN (9-20) mg/dL Creatinine (0.66-1.25) mg/dL Estimated GFR ML/MIN Glucose (74-106) mg/dL Lactic Acid (0.4-2.0) Calcium (8.4-10.2) mg/dL Total Bilirubin (0.2-1.3) mg/dL AST (17-59) U/L ALT (0-50) U/L Alkaline Phosphatase (38-126) U/L Serum Total Protein (6.3-8.2) g/dL Albumin (3.5-5.0) g/dL Urine Color YELLOW (YELLOW) Urine Appearance CLEAR (CLEAR) Urine pH 5.0 (5-6) Ur Specific [place] 1.039 (1.005-1.025) Urine Protein 30 (Negative) Urine Ketones TRACE (NEGATIVE) Urine Blood NEGATIVE (0-5) Que/ul Urine Nitrite NEGATIVE (NEGATIVE) Urine Bilirubin NEGATIVE (NEGATIVE) Urine Urobilinogen NEGATIVE (0-1) mg/dL Ur Leukocyte Esterase NEGATIVE (NEGATIVE) Urine WBC (Auto) 0-2 (0-5) /HPF Urine RBC (Auto) NONE (0-2) /HPF U Hyaline Cast (Auto) 0-2 (0-2) /LPF U Epithel Cells (Auto) NONE (FEW) /HPF Urine Bacteria (Auto) NONE SEEN (NEGATIVE) /HPF Urine Mucus (Auto) SLIGHT (NEGATIVE) /HPF Urine Culture Reflexed NO (NO) Urine Glucose >=500 (NEGATIVE) mg/dL - Progress Progress: improved, re-examined Progress Note: 05/23/21 22:48 discussed limitations of imaging performed with pt and that undetected pathology may be evolving including epidural abscess or bleeding even without additional symptoms, and he is comfortable to choose DC with outpt f/u rather than further w/u in ER or transfer for immediate additional evaluation at this time and has the normal mental status and capacity to make this choice. He is also advised that he probably has diabetes and should see his Tuesday to begin treatment as well and return meantime if any symptoms suchs as frequency of urination, vomiting, weakness or other concern. 05/23/21 23:41 pain is resolving after Tx. Counseled pt/family regarding: lab results, diagnosis, need for follow-up, rad results - Departure Departure Disposition: Home Clinical Impression: Diabetes, Low back pain, Renal calculus or stone Condition: Good Critical Care Time: No Referrals: JIM AMIN MD [Primary Care Provider] - Follow up/PCP as directed Instructions: Type 2 Diabetes, Hyperglycemia, Adult, Kidney Stones (DC), Low Back Pain (DC) Additional Instructions: You may have Diabetes and need further evaluation and treatment for that with your Tuesday. We have given muscle relaxers and you can try tylenol for your back pain, but y ou should see and ORtho or your DrEnzo this week early for consideration of additional imaging such as MRI. You may be at risk for unusual spinal complications with your blood thinner even without the usual symptoms such as numbness or weakness or fever. Therefore further workup may be indicated with y alireza Cloud and return meantime if any of these concerning symptoms develop or if pain is not improving. You do also have an incidental kidney stone which is probably not related to the symptoms as it is on the right side, but needs follow-up as well. Follow-up with your DrEnzo for blood pressure and slightly elevated liver test with your DrEnzo as well. Prescriptions: Cyclobenzaprine HCl 10 mg [Cyclobenzaprine 10 MG] 10 mg PO HS #14 tablet
[2021-05-23] MEDS ORDERED: Norflex 60 MG/2 ML IM ONE (20:29)
[2021-05-23] MEDS ORDERED: Hydromorphone 1 mg/ml Injection IV ONE ×2 (20:39→22:44)
[2021-05-23] MEDS ORDERED: Sodium Chloride 0.9% 1000 ML 1,000 ML IV STA (20:39)
[2021-05-23] MEDS ORDERED: Zofran 4 MG/2 ML VIAL IV ONE (20:40)
[2021-05-23 20:51] LABS: Absolute Neutrophil Ct (ANC) 2.27 (1.4-6.9); Basophil (Absolute #) 0.01 (0-0.4); Eosinophil % 4.1 % (0.00-5.0); Eosinophil (Absolute #) 0.23 (0-0.5); Hematocrit 40.3 % (42-50); Hemoglobin 13.9 gm/dl (12.5-18.0); Lymphocyte (Absolute #) 2.43 (1.0-4.6); Lymphocytes % 43.6 % (24.0-44.0); Mean Cell Volume 93.1 fl (78-100); Mean Corpuscular Hemoglobin 32.1 pg (26-32); Mean Corpuscular Hgb Concent. 34.5 g/dl (32-36); Mean Platelet Volume 9.8 fl (7.5-11.0); Monocyte (Absolute #) 0.63 (0.0-1.3); Monocytes % 11.3 % (0.0-12.0); Neutrophil % 40.8 % (36.0-66.0); Platelet Count 189 K/mm3 (150-450); Red Blood Count 4.33 M/mm3 (4.1-5.6); Red Cell Distribution Width 12.7 % (11.5-14.0); White Blood Count 5.6 K/mm3 (4.0-10.5)
[2021-05-23] MEDS ORDERED: Zofran 4 MG/2 ML VIAL ONE (20:51)
[2021-05-23] MEDS ORDERED: Sodium Chloride 0.9% 1000 ML 1,000 ML ONE (20:51)
[2021-05-23] MEDS ORDERED: Hydromorphone 1 mg/ml Injection ONE ×2 (20:51→22:59)
[2021-05-23 20:52] LABS: Appearance CLEAR (CLEAR); Bilirubin NEGATIVE (NEGATIVE); Blood NEGATIVE Ery/ul (0-5); Glucose >=500 mg/dL (NEGATIVE); Hyaline Casts 0-2 /LPF (0-2); Ketones TRACE (NEGATIVE); Leukocyte Esterase NEGATIVE (NEGATIVE); Mucus SLIGHT /HPF (NEGATIVE); Nitrite NEGATIVE (NEGATIVE); Protein,Urine Dip 30 (Negative); Specific Gravity 1.039 (1.005-1.025); Urobilinogen NEGATIVE mg/dL (0-1); WBC 0-2 /HPF (0-5)
[2021-05-23 21:01] LABS: Bacteria NONE SEEN /HPF (NEGATIVE)
[2021-05-23 21:16] LABS: ALBUMIN 4.2 g/dL (3.5-5.0); ALKALINE PHOSPHATASE 68 U/L (38-126); ANION GAP 13.5 MEQ/L (5-15); BLOOD UREA NITROGEN 18 mg/dL (9-20); CHLORIDE 103 mmol/L (98-107); Calcium 9.2 mg/dL (8.4-10.2); Carbon Dioxide 26 mmol/L (22-30); Creatinine 1 0.93 mg/dL (0.66-1.25); EST GLOMERULAR FILTRATION RATE > 60.0 ML/MIN; Glucose 284 mg/dL (74-106); Potassium 4.3 mmol/L (3.5-5.1); SGOT/AST 32 U/L (17-59); SGPT/ALT 62 U/L (0-50); SODIUM 138 mmol/L (137-145); Total Protein 6.9 g/dL (6.3-8.2)
[2021-05-23] MEDS ORDERED: Cyclobenzaprine 10 MG PO ONE (22:45)
[2021-05-23 22:53] VITALS: O2SAT 97
[2021-05-23] MEDS ORDERED: Cyclobenzaprine 10 MG ONE (22:58)
[2021-05-24 00:02] VITALS: BP 130/80; PULSE 74
--- NOTE | 2021-05-24 07:39 | XRAY ---
Indication: Low back pain 7 days. Epidural bleed/abscess. Multiple contiguous axial images obtained through the lumbar spine using 100 cc Isovue 370 contrast as ordered. Sagittal and coronal reformatted images obtained. Comparison: None There are 5 lumbar segments with incidental small T12-L3 Schmorl nodes and L4 limbus vertebrae. Axial images negative for acute fracture, suspicious bony lesions, or spinal canal stenosis. No obvious enhancing epidural fluid collection or air bubbles. Right L5-S1 foraminal stenosis due to broad-based disc osteophyte complex. Facets are symmetric. Sagittal and coronal reformatted images demonstrates normal lumbar lordosis with minimal double curvature scoliosis peered vertebral body heights/disc space is maintained. No acute fracture or subluxation. Visualized soft tissues demonstrates 3 mm nonobstructing right renal calculus. Impression: 1. Right L5-S1 foraminal stenosis due to degenerative disc, multilevel Schmorl nodes, L4 limbus vertebrae, scoliosis, and nonobstructing right renal micro-calculus. 2. Remaining CT lumbar spine with contrast exam is negative. Comment: Preliminary interpretation made by [facility]. No critical discrepancy.
== END 2021-05-24 00:02 | disposition home or self-care (01) ==
LOC: ED 20:02
DX: M54.50 Low back pain, unspecified (principal); N20.0 Calculus of kidney; E11.9 Type 2 diabetes mellitus without complications; Z86.718 Personal history of other venous thrombosis and embolism; Z79.01 Long term (current) use of anticoagulants
CPT/HCPCS: 36000; 36415; 72131; 80053; 81001; 83605; 85025; 96374; 96376; 99284; J1170; J2405; A9270-GY